=== PATIENT | female | born 1985 | race African-American/Black ===

== ENCOUNTER 2021-09-08 17:46 | Inpatient (IN) ==
[2021-09-08] MEDS ORDERED: ONDANSETRON 4 MG/2 ML VIAL IV PRN (20:43)
[2021-09-08] MEDS: LACTATED RINGERS 1,000 ML IV SCH (20:57)
[2021-09-08] MEDS: KETOROLAC 30 MG/1 ML VIAL IV SCH (20:58)
[2021-09-08] MEDS: HYDROmorphone 2 MG/1 ML VIAL IV PRN (23:49)
[2021-09-09] MEDS ORDERED: INFLUENZA VIRUS VACCINE 0.5 ML SYRINGE IM ONE (01:22)
[2021-09-09] MEDS: LACTATED RINGERS 1,000 ML IV SCH ×4 (02:00→18:02)
[2021-09-09] MEDS: KETOROLAC 30 MG/1 ML VIAL IV SCH ×4 (03:20→20:31)
[2021-09-09 06:04] LABS: Basophils % 0.3 % (0.0-0.8); Eosinophils # 0.1 10*3/uL (0.0-0.87); Eosinophils % 3.6 % (0.00-10.9); Hemoglobin 10.3 GM/DL (12.0-16.0); Immature Granulocytes % 0.3 %; Immature Granulocytes Absolute 0.01 #; Lymphocytes # 1.9 10*3/uL (1.4-4.0); Lymphocytes % 51.6 % (21.3-54.2); Mean Corpuscular HGB Conc 30.3 GM/DL (32-36); Mean Corpuscular Volume 86.7 FL (87-102); Mean Platelet Volume 11.5 FL (9.6-12.0); Monocytes % 7.1 % (1.7-12.7); Neutrophils % 37.1 % (38.7-73.9); Platelet Count 216 T/CUMM (130-400); Red Blood Count 3.92 MC/CUMM (3.8-5.5); Red Cell Distribution Width 13.2 % (9.3-17.3); White Blood Count 3.6 T/CUMM (4-12)
[2021-09-09 06:22] LABS: Bilirubin,Total 0.4 MG/DL (0.20-1.00); Calcium 8.6 MG/DL (8.5-10.1); Osmolality,Calculated 272.5 MOS/KG (273-304); Potassium 3.6 MMOL/L (3.5-5.1)
[2021-09-09] MEDS ORDERED: PROMETHAZINE 25 MG/1 ML VIAL IM PRN (08:09)
[2021-09-09 09:01] LABS: Eosinophils 4 % (0-10); Lymphocytes 45 % (20-55); Segmented Neutrophils 46 % (50-85); Total Cells Counted 100
[2021-09-09 09:02] LABS: Atypical Lymphocytes Few; Ovalocytes Few; Platelet Estimate Normal
[2021-09-09] MEDS: PANTOPRAZOLE 40 MG TABLET PO SCH (09:18)
[2021-09-09] MEDS: PIPERACILLIN/TAZOBACTAM 3,375 MG in SODIUM CHLORIDE 0.9% 100 ML IV SCH ×2 (09:18→16:56)
[2021-09-09] MEDS ORDERED: INDOCYANINE GREEN 25 MG VIAL IV ONE (09:43)
[2021-09-09] MEDS ORDERED: fentaNYL 100 MCG/2 ML VIAL ONE (10:06)
[2021-09-09] MEDS ORDERED: SEVOFLURANE 1 UNIT/15 MINUTE INH ONE (10:06)
[2021-09-09] MEDS ORDERED: propofoL 200 MG/20 ML VIAL IV ONE ×2 (10:06→12:04)
[2021-09-09] MEDS ORDERED: ROCURONIUM 50 MG/5 ML VIAL IV ONE (10:06)
[2021-09-09] MEDS ORDERED: LIDOCAINE 2% 5 ML VIAL ONE (10:06)
[2021-09-09] MEDS ORDERED: TISSUE ADHESIVE 1 EACH APPLICATOR TOP ONE (10:14)
[2021-09-09] MEDS ORDERED: BUPIVACAINE MPF 0.25% 30 ML VIAL ONE (10:14)
[2021-09-09] MEDS ORDERED: LIDOCAINE 1%/EPI INJ 20 ML VIAL ONE (10:14)
[2021-09-09] MEDS ORDERED: MIDAZOLAM 2 MG/2 ML VIAL ONE (11:16)
[2021-09-09] MEDS ORDERED: PHENYLEPHRINE 1 MG/10 ML SYRINGE IV ONE (11:57)
[2021-09-09] MEDS ORDERED: NEOSTIGMINE 10 MG/10 ML VIAL ONE (11:57)
[2021-09-09] MEDS ORDERED: GLYCOPYRROLATE 0.4 MG/2 ML VIAL ONE (11:57)
[2021-09-09] MEDS ORDERED: PHENOL 1.4% THROAT SPRAY 177 ML BOTTLE PO PRN (20:04)
[2021-09-09] MEDS: HYDROmorphone 2 MG/1 ML VIAL IV PRN (20:21)
[2021-09-10] MEDS: LACTATED RINGERS 1,000 ML IV SCH ×3 (00:06→10:57)
[2021-09-10] MEDS: PIPERACILLIN/TAZOBACTAM 3,375 MG in SODIUM CHLORIDE 0.9% 100 ML IV SCH ×2 (00:06→10:19)
[2021-09-10] MEDS: KETOROLAC 30 MG/1 ML VIAL IV SCH ×2 (03:38→10:20)
[2021-09-10 05:07] LABS: Eosinophils % 0.1 % (0.00-10.9); Hematocrit 32.4 VOL% (35.7-47.0); Hemoglobin 9.9 GM/DL (12.0-16.0); Immature Granulocytes % 0.3 %; Immature Granulocytes Absolute 0.02 #; Lymphocytes # 1.1 10*3/uL (1.4-4.0); Lymphocytes % 14.5 % (21.3-54.2); Mean Corpuscular HGB Conc 30.6 GM/DL (32-36); Mean Corpuscular Volume 85.7 FL (87-102); Mean Platelet Volume 11.4 FL (9.6-12.0); Monocytes % 4.3 % (1.7-12.7); Neutrophils % 80.8 % (38.7-73.9); Platelet Count 241 T/CUMM (130-400); Red Blood Count 3.78 MC/CUMM (3.8-5.5); White Blood Count 7.2 T/CUMM (4-12)
[2021-09-10 05:30] LABS: Alanine Aminotransferase 258 U/L (13-56); Alkaline Phosphatase 88 U/L (45-117); Aspartate Amino Transferase 120 U/L (0-37); Bilirubin,Total < 0.39 MG/DL (0.20-1.00); Blood Urea Nitrogen 8 MG/DL (7-18); Calcium 8.6 MG/DL (8.5-10.1); Carbon Dioxide 25 MMOL/L (21-32); Estimated Glom Filtration Rate 134 ML/MIN; Glucose 135 MG/DL (74-106); Osmolality,Calculated 278.4 MOS/KG (273-304); Potassium 3.7 MMOL/L (3.5-5.1); Sodium 140 MMOL/L (136-145); Total Protein 6.2 G/DL (6.4-8.2)
[2021-09-10] MEDS ORDERED: ENOXAPARIN 40 MG/0.4 ML SYRINGE SUBCUT SCH (06:00)
[2021-09-10] MEDS: HYDROmorphone 2 MG/1 ML VIAL IV PRN (10:18)
[2021-09-10] MEDS: PANTOPRAZOLE 40 MG TABLET PO SCH (10:19)
[2021-09-10 12:11] VITALS: BP 131/69
== END 2021-09-10 12:53 | disposition home or self-care (01) | DRG 419 ==
LOC: N.3E 19:28
PROVIDERS: ADMIT Surgery; ATTEND Surgery